=== PATIENT | female | born 1975 | race Caucasian/White ===

== ENCOUNTER → 2018-10-18 14:00 | Outpatient (CLI) | payer OTHER, SELFPAY ==
--- NOTE | 2018-10-18 | DI.MRI.S_ITS ---
PROCEDURE: MR CERVICAL SPINE WO CON INDICATIONS: Bilateral shoulders and neck pain TECHNIQUE: Noncontrast sagittal T1 spin echo and T2 fast spin echo, sagittal STIR, foraminal oblique sagittal T2 fast spin echo, and axial gradient echo or T2 fast spin echo through the cervical spine. COMPARISON: None. FINDINGS: Image quality: Excellent. Alignment and Curvature: There is loss of normal cervical lordosis. There is mild, grade 1 retrolisthesis of C4 on C5. Bone Marrow: Marrow demonstrates normal overall signal. Anterior fusion of C5-C7 has been performed. Spinal Cord: Visualized spinal cord has normal size and signal. No cerebellar tonsillar herniation. Paraspinous Soft Tissues: No paravertebral masses. Prevertebral soft tissues are normal in thickness. C2-C3: Mild disc desiccation and diffuse disc bulge. Mild canal stenosis. No foraminal stenosis. C3-C4: Mild disc height loss and desiccation. Mild diffuse disc bulge. Mild bilateral facet and uncovertebral hypertrophy. Mild canal stenosis. Moderate bilateral foraminal stenosis. C4-C5: Mild disc height loss and desiccation. Mild diffuse disc bulge. Mild bilateral facet and uncovertebral hypertrophy. Moderate to severe canal stenosis. Minimal cord flattening. Severe left and mild right foraminal stenosis. Mild flattening deformity of the left C5 nerve root. C5-C6: Status post fusion. Mild residual disc osteophyte complex. Mild bilateral facet hypertrophy. Minimal canal stenosis. Mild foraminal stenosis bilaterally. C6-C7: Status post fusion. Mild residual disc osteophyte complex. Mild facet hypertrophy. Minimal canal stenosis. Mild foraminal stenosis bilaterally. C7-T1: Mild disc desiccation and diffuse disc bulge. Mild diffuse disc bulge. Mild bilateral facet and uncovertebral hypertrophy. Mild canal stenosis. Mild bilateral foraminal stenosis. IMPRESSION: 1. Low anterior cervical fusion with no significant canal, nor foraminal stenosis at the fused levels. 2. Multilevel degenerative disc and facet disease, as well as uncovertebral hypertrophy. 3. Multilevel canal stenoses, worst at C4-C5, where there is moderate to severe canal stenosis and minimal cord flattening. 4. Multilevel foraminal stenoses, worst on the left at C4-C5, where there is mild flattening deformity of the left L5 nerve root; recommend correlation with clinical symptoms to ascertain relevance of these findings. Dictated by: Giovanni Alvarado M.D. on 10/18/2018 at 15:44 Approved by: Giovanni Alvarado M.D. on 10/18/2018 at 15:56
== END ==
PROVIDERS: PCP Registered Nurse Diabetes Educator; Visit Provider Registered Nurse Diabetes Educator
DX: M50.31 Other cervical disc degeneration, high cervical region (principal); M48.02 Spinal stenosis, cervical region; M25.512 Pain in left shoulder; M25.511 Pain in right shoulder; Z98.1 Arthrodesis status
CPT/HCPCS: 72141